=== PATIENT | female | born 1990 | race Caucasian/White ===

== ENCOUNTER 2016-09-26 05:22 | Day surgery (SDC) | payer BC ==
[2016-09-24 13:43] VITALS: BMI 25.4
[2016-09-26] MEDS ORDERED: IBUPROFEN 800 MG/8 ML IJ IVPB PRN (08:35)
[2016-09-26] MEDS ORDERED: ACETAMINOPHEN 325 MG TABLET (FP) PO PRN (08:35)
--- NOTE | 2016-09-26 08:37 | HP ---
History & Physical Update - History History: No Change - Physical Physical: No Change - Assessment Assessment: No Change - Plan Plan: No Change (FREDY 2 - for LEEP cone biopsy)
[2016-09-26] MEDS ORDERED: MIDAZOLAM HCL 2 MG/2 ML SINGLE DOSE VIAL ONE ×2 (08:44→08:49)
[2016-09-26] MEDS ORDERED: LACTATED RINGERS SOLUTION 1,000 ML IV SCH (08:45)
[2016-09-26] MEDS ORDERED: LIDOCAINE HCL/PF 2% SDV 5ML VIAL ONE (08:49)
[2016-09-26] MEDS ORDERED: KETOROLAC TROMETHAMINE 30 MG/1 ML VIAL ONE (08:49)
[2016-09-26] MEDS ORDERED: DEXAMETHASONE SOD PHOSPHATE 4 MG/1 ML VIAL ONE (08:49)
[2016-09-26] MEDS ORDERED: PROPOFOL 20 ML ONE ×2 (08:49→08:50)
[2016-09-26] MEDS ORDERED: oxyCODONE HCL 5 MG TABLET PO PRN (09:24)
[2016-09-26] MEDS ORDERED: PROMETHAZINE HCL 25 MG/1 ML VIAL IVPUSH PRN (09:24)
[2016-09-26] MEDS ORDERED: ONDANSETRON 4 MG/2 ML VIAL IVPUSH PRN (09:24)
--- NOTE | 2016-09-26 09:26 | OP ---
Operative Note - Note: Operative Date: 09/26/16 Pre-Operative Diagnosis: Dulce 2 /cervical dysplasia Operation: LEEP cone biopsy Findings: lugols negative area on cervix at 12:00 position Post-Operative Diagnosis: Same as Pre-op Surgeon: Columba Maldonado Anesthesiologist/[employer]ICE [employer]IL PROCESSOR: Manolo Castellanos Anesthesia: MAC Specimens Removed: cervical cone biopsy Estimated Blood Loss (mls): 5 Operative Report Dictated: Yes
[2016-09-26 10:18] VITALS: TEMP 98
[2016-09-26 11:53] VITALS: BP 115/58; PULSE 82
[2016-09-26] MEDS ORDERED: ACETAMINOPHEN 325 MG TABLET (FP) ONE (11:56)
[2016-09-27] MEDS ORDERED: MULTIVITAMINS (DAILY MVI) TABLET (FP) PO SCH (10:00)
--- NOTE | 2016-09-29 12:08 | PATH ---
Surgical Pathology Report Patient Name: EUGENIA PACHECO [facility]. Rec. #: [id number] /Age/Gender: 1990 (Age: 26) / F Account: [id number] Location: [facility] SURGICAL Taken: 09/26/2016 Received: 09/26/2016 Reported: 09/29/2016 Physicians: Columba Maldonado M.D. Specimen(s) Received LEEP CONE BX Clinical History Cervical dysplasia Final Diagnosis CERVIX, LEEP CONE BIOPSY: CERVICAL SQUAMOUS AND ENDOCERVICAL MUCOSA WITH HIGH GRADE SQUAMOUS INTRAEPITHELIAL LESION (CERVICAL INTRAEPITHELIAL NEOPLASIA 2/FREDY 2). SURGICAL RESECTION MARGINS: NEGATIVE FOR DYSPLASIA. TRANSFORMATION ZONE: PRESENT. Electronically Signed Adarsh Urbano M.D. Gross Description Received in formalin labeled "LEEP cone biopsy" is a 1.8 x 1.5 x 0.4 cm travis, irregular, unoriented portion of soft tissue, consistent with a portion of cervix. There is no cervical os identified. The specimen is partially surfaced by a travis-pink mucosa. The specimen is inked blue, serially sectioned and entirely submitted in 2 cassettes. /09/26/2016 [facility]09/26/2016
== END 2016-09-26 13:01 | disposition home or self-care (01) ==
LOC: JASU-SURG 05:22
PROVIDERS: ATTEND Obstetrics & Gynecology
PROC: 0UBC8ZX Excision of Cervix, Via Natural or Artificial Opening Endoscopic, Diagnostic (ICD-10-PCS; principal; 2016-09-26 08:30)
DX: N87.1 Moderate cervical dysplasia (principal)
CPT/HCPCS: 88307-TC; 94760

== ENCOUNTER 2020-05-28 06:50 | Inpatient (IN) | payer BC ==
[2020-05-28 08:03] VITALS: BMI 31.9
[2020-05-28] MEDS ORDERED: CITRIC ACID/SODIUM CITRATE 30 ML UNIT-DOSE CUP PO ONE (08:04)
[2020-05-28] MEDS ORDERED: PROMETHAZINE HCL 25 MG/1 ML VIAL IVPUSH ONE (08:04)
[2020-05-28] MEDS ORDERED: WITCH HAZEL 50% (TUCKS) 40 PAD/JAR PAD TP PRN (08:11)
[2020-05-28] MEDS ORDERED: BENZOCAINE 28 GM HEMORRHOIDAL OINTMENT TP PRN (08:11)
[2020-05-28] MEDS ORDERED: BENZOCAINE 20% 57 GM BOTTLE TP PRN (08:11)
[2020-05-28] MEDS ORDERED: METHYLERGONOVINE MALEATE 0.2 MG/1 ML AMP IM PRN (08:11)
[2020-05-28] MEDS ORDERED: SENNOSIDES/DOCUSATE COMBO (SENNA PLUS) TABLET (UD) PO PRN (08:11)
[2020-05-28] MEDS ORDERED: IBUPROFEN 800 MG/8 ML IJ IVPB PRN (08:11)
[2020-05-28] MEDS ORDERED: ELECTROLYTE-148 SOLN 1,000 ML IV SCH (08:15)
[2020-05-28] MEDS ORDERED: IBUPROFEN 600 MG TABLET (FP) PO PRN (08:17)
[2020-05-28] MEDS ORDERED: ONDANSETRON 4 MG/2 ML VIAL IVPUSH PRN (08:17)
[2020-05-28] MEDS ORDERED: morphine SULFATE/PF 0.5 MG/ML (2cc Syringe - QUVA) ONE (08:34)
[2020-05-28] MEDS ORDERED: PHENYLEPHRINE HCL 10 MG/1 ML SINGLE DOSE VIAL ONE (08:34)
[2020-05-28] MEDS ORDERED: ePHEDrine SULFATE 50 MG/1 ML AMPULE ONE (08:49)
[2020-05-28] MEDS ORDERED: MIDAZOLAM HCL 2 MG/2 ML SINGLE DOSE VIAL ONE (09:17)
[2020-05-28 09:45] LABS: CORD BASE EXCESS -0.8 mmol/L (0-2); CORD BASE EXCESS -2.7 mmol/L (0-2); CORD HCO3 25.5 mmHg (20-29); CORD HCO3 26.1 mmHg (20-29); CORD PCO2 48.1 mmHg (30-78); CORD PCO2 62.2 mmHg (30-78); CORD pH 7.241 (7.14-7.44); CORD pH 7.342 (7.14-7.44)
[2020-05-28] MEDS ORDERED: ONDANSETRON 4 MG/2 ML VIAL ONE (09:52)
[2020-05-28] MEDS ORDERED: OXYTOCIN 20 UNITS in 0.9% NS 20 UNIT/1,000 ML INFUS.BAG IV ONE (09:54)
[2020-05-28] MEDS: FERROUS SO4 325 MG TABLET (FP) PO SCH ×2 (10:27→18:47)
[2020-05-28] MEDS: PRENATAL VITAMINS W/ FOLIC ACID TABLET (FP) PO SCH (10:27)
[2020-05-28] MEDS: OXYTOCIN 20 UNITS in 0.9% NS 20 UNIT/1,000 ML INFUS.BAG IV SCH (11:00)
[2020-05-28] MEDS: IBUPROFEN 600 MG TABLET (FP) PO PRN (21:09)
[2020-05-28] MEDS: ACETAMINOPHEN 325 MG TABLET (FP) PO PRN (21:09)
[2020-05-28] MEDS: SIMETHICONE 80 MG TAB.CHEW (FP) PO PRN (21:10)
[2020-05-29] MEDS: IBUPROFEN 600 MG TABLET (FP) PO PRN ×4 (04:38→20:10)
[2020-05-29] MEDS: SIMETHICONE 80 MG TAB.CHEW (FP) PO PRN ×4 (04:39→20:13)
[2020-05-29] MEDS: ACETAMINOPHEN 325 MG TABLET (FP) PO PRN ×3 (04:39→14:26)
[2020-05-29] MEDS ORDERED: BISACODYL 10 MG SUPP.RECT RC PRN (08:11)
[2020-05-29 08:34] LABS: BASO % 0.1 % (0-2.0); EOS % 0.2 % (0-4.5); HEMOGLOBIN 9.2 GM/dL (10.7-15.3); LYMPH % 12.2 % (8-40); MCH 27.6 pg (25.7-33.7); MCHC 32.8 g/dl (32.0-36.0); MEAN CELL VOLUME 84.2 fl (80-96); MEAN PLT VOLUME 10.3 fl (7.5-11.1); MONO % 6.4 % (3.8-10.2); NEUT % 81.1 % (42.8-82.8); PLATELET COUNT 127 K/MM3 (134-434); RBC 3.33 M/mm3 (3.60-5.2); RDW 15.6 % (11.6-15.6); WHITE BLOOD COUNT 12.8 K/mm3 (4.0-10.0)
[2020-05-29] MEDS: FERROUS SO4 325 MG TABLET (FP) PO SCH ×2 (09:47→17:44)
[2020-05-29] MEDS: PRENATAL VITAMINS W/ FOLIC ACID TABLET (FP) PO SCH (09:49)
[2020-05-29] MEDS: OXYTOCIN 20 UNITS in 0.9% NS 20 UNIT/1,000 ML INFUS.BAG IV SCH (12:46)
[2020-05-29] MEDS ORDERED: oxyCODONE HCL 5 MG TABLET PO PRN (20:00)
[2020-05-29] MEDS: oxyCODONE HCL 5 MG TABLET PO PRN (20:09)
[2020-05-30] MEDS: IBUPROFEN 600 MG TABLET (FP) PO PRN ×3 (01:15→14:27)
[2020-05-30] MEDS: SIMETHICONE 80 MG TAB.CHEW (FP) PO PRN ×3 (01:19→14:29)
[2020-05-30] MEDS: ACETAMINOPHEN 325 MG TABLET (FP) PO PRN ×3 (05:25→14:29)
[2020-05-30] MEDS: oxyCODONE HCL 5 MG TABLET PO PRN ×2 (05:26→14:29)
[2020-05-30] MEDS: FERROUS SO4 325 MG TABLET (FP) PO SCH (10:45)
[2020-05-30] MEDS: PRENATAL VITAMINS W/ FOLIC ACID TABLET (FP) PO SCH (10:45)
[2020-05-30 12:05] VITALS: BP 109/64; PULSE 95; TEMP 98.2
== END 2020-05-30 16:25 | disposition home or self-care (01) | DRG 788 ==
LOC: JLDR 06:50 → J3W 11:19
PROVIDERS: ADMIT Obstetrics & Gynecology; ATTEND Obstetrics & Gynecology
PROC: 10D00Z1 Extraction of Products of Conception, Low, Open Approach (ICD-10-PCS; principal; 2020-05-28)
DX: O34.211 Maternal care for low transverse scar from previous cesarean delivery (principal); N85.8 Other specified noninflammatory disorders of uterus; Z3A.39 39 weeks gestation of pregnancy; Z37.0 Single live birth
CPT/HCPCS: 36415; 36600; 59409; 82803; 85025